=== PATIENT | male | born 1950 | race Caucasian/White ===

== ENCOUNTER → 2017-10-23 | Outpatient (CLI) | payer MEDICARE, OTHER ==
[~2017-10-23] MED LIST: ACCUNEB0.63 MG/3; ADVAIR 250-501 EACH INH; ALEVE220 M1; ANORO ELLIPTA1 EACH INH; AVELOX 400 MG400 MG PO; CARDURA4 MG PO; DUONEB 2.5-0.5 M3 ML INH; FLOMAX0.4 MG PO; FUROSEMIDE20 MG/2 ML PO; LASIX 20 MG TAB20 MG PO; LIPITOR10 MG PO; MUCINEX600 MG PO; NICOTINE TRANSD21 M1 TD; PEPCID40 MG PO; PREDNISONE 10 M10 M1; STIOLTO RESPIMAT4 GM; VENTOLIN HFA 1818 GM INH
== END ==
LOC: M.ULTRA 10:05
DX: R22.1 Localized swelling, mass and lump, neck (principal); J44.9 Chronic obstructive pulmonary disease, unspecified